=== PATIENT | female | born 1965 | race Caucasian/White ===

== ENCOUNTER 2020-03-04 11:28 | Outpatient (CLI) | payer BC ==
--- NOTE | 2020-03-04 12:42 | RAD ---
LEFT KNEE 3 VIEWS: HISTORY: Pain in the left knee. FINDINGS: Degenerative changes are present. No fracture, dislocation, or bone destruction is identified. POS: [facility]
== END 2020-03-04 11:29 | disposition home or self-care (01) ==
LOC: RAD-FITCH 11:28
PROVIDERS: ATTEND Family Medicine
DX: M25.562 Pain in left knee (principal); M17.12 Unilateral primary osteoarthritis, left knee